=== PATIENT | female | born 1990 | race American Indian/Alaskan Native ===

== ENCOUNTER 2021-06-17 10:15 | Emergency (ER) | payer SELFPAY ==
[2021-06-17] MEDS ORDERED: FAMOTIDINE 20 MG TAB PO ONE (11:37)
[2021-06-17] MEDS ORDERED: ONDANSETRON 4 MG ODT TAB PO ONE (11:37)
[2021-06-17] MEDS ORDERED: PANTOPRAZOLE 40 MG TAB PO ONE (11:37)
--- NOTE | 2021-06-17 11:51 | Emergency Department Report ---
ED Abdominal Pain HPI - General Chief Complaint: Nausea/Vomiting/Diarrhea Stated Complaint: ABDOMINAL PAIN VOMITING PUI?: No Time Seen by Provider: 06/17/21 11:11 Source: patient Mode of arrival: Ambulatory Limitations: No Limitations - History of Present Illness Initial Comments: 30-year-old female presents to the ER today with complaints of epigastric pain. Patient states that the pain woke up this morning around 3 AM. She describes as a burning pain that has been constant but waxes and wanes. She states that she had 2 episodes of vomiting with the pain. She denies any coffee-ground emesis or hematemesis. She also had 3 episodes of loose stools with no melena, hematochezia or mucus in the stool. She states that she had similar symptoms 2 years ago and at that time it was related to her gallbladder which she is c urrently status post cholecystectomy. She states that she was fine for 6 months after she had her gallbladder removed and since then she has been having intermittent pain in her epigastric area. She has never seen a GI specialist for endoscopy. She denies alcohol abuse or NSAID abuse. Her last menstrual cycle stopped yesterday. She is status post tubal ligation. MD Complaint: abdominal pain -: Sudden, This morning - Related Data Previous Rx's Medication Instructions Recorded Last Taken Type Famotidine [Pepcid] 20 mg PO BID #20 tablet 06/17/21 Unknown Rx Ondansetron [Zofran Odt] 4 mg PO Q8HR PRN #12 tab.rapdis 06/17/21 Unknown Rx Pantoprazole [Protonix] 40 mg PO QDAY #30 tablet 06/17/21 Unknown Rx Allergies Allergy/AdvReac Type Severity Reaction Status Date / Time No Known Allergies Allergy Verified 06/17/21 10:26 ED Review of Systems ROS: Stated complaint: ABDOMINAL PAIN VOMITING Other details as noted in HPI Comment: All other systems reviewed and negative Constitutional: denies: chills, fever Eyes: denies: eye pain, eye discharge, vision change ENT: denies: ear pain, throat pain, dental pain, hearing loss, epistaxis, congestion Respiratory: denies: cough, shortness of breath, SOB with exertion, SOB at rest, wheezing Cardiovascular: denies: chest pain, palpitations, edema, syncope, paroxysmal nocturnal dyspnea Endocrine: no symptoms reported Gastrointestinal: abdominal pain, nausea, vomiting. denies: diarrhea, constipation, hematemesis, melena, hematochezia Genitourinary: denies: urgency, dysuria, frequency, hematuria, discharge, abnormal menses, dyspareunia Skin: denies: rash, lesions, change in color, change in hair/nails, pruritus Neurological: denies: headache, weakness, paresthesias, abnormal gait, vertigo Psychiatric: denies: anxiety, depression, auditory hallucinations, visual hallucinations, homicidal thoughts, suicidal thoughts Hematological/Lymphatic: denies: easy bleeding, easy bruising, swollen glands ED Past Medical Hx - Past Medical History Previous Medical History?: Yes Additional medical history: gastritis - Surgical History Past Surgical History?: Yes Hx Cholecystectomy: Yes - Medications Home Medications: Home Medications Medication Instructions Recorded Confirmed Last Taken Type Famotidine [Pepcid] 20 mg PO BID #20 tablet 06/17/21 Unknown Rx Ondansetron [Zofran Odt] 4 mg PO Q8HR PRN #12 tab.rapdis 06/17/21 Unknown Rx Pantoprazole [Protonix] 40 mg PO QDAY #30 tablet 06/17/21 Unknown Rx ED Physical Exam - General Limitations: No Limitations General appearance: alert, in no apparent distress - Head Head exam: Present: atraumatic, normocephalic - Eye Eye exam: Present: normal appearance, PERRL, EOMI Pupils: Present: normal accommodation - ENT ENT exam: Present: normal exam, mucous membranes moist, TM's normal bilaterally - Neck Neck exam: Present: normal inspection, full ROM - Respiratory Respiratory exam: Present: normal lung sounds bilaterally. Absent: respiratory distress, wheezes, rales - Cardiovascular Cardiovascular Exam: Present: regular rate, normal rhythm, normal heart sounds - GI/Abdominal GI/Abdominal exam: Present: soft, tenderness (Mild epigastric ttp without guarding or rebound ). Absent: distended - Neurological Exam Neurological exam: Present: alert, oriented X3, CN II-XII intact, normal gait - Psychiatric Psychiatric exam: Present: normal affect, normal mood - Skin Skin exam: Present: intact ED Course Vital Signs 06/17/21 06/17/21 06/17/21 10:25 10:26 13:57 Temperature 98.4 F Pulse Rate 58 L 55 L Respiratory 16 Rate Blood Pressure 120/62 Blood Pressure 114/62 [Left] O2 Sat by Pulse 100 99 Oximetry ED Medical Decision Making - Lab Data Result diagrams: 06/17/21 11:42 06/17/21 11:42 - Radiology Data Radiology results: report reviewed Patient: AKIRA SILVA MR#: [id number] : 1990 Acct:[id number] Age/Sex: 30 / F ADM Date: 06/17/21 Loc: ED Attending Dr: Ordering Physician: KYLIE BALES Date of Service: 06/17/21 Procedure(s): CT abdomen pelvis w con Accession Number(s): [id number] cc: KYLIE BALES CT ABDOMEN AND PELVIS WITH CONTRAST HISTORY: Epigastric pain COMPARISON: None TECHNIQUE: Routine abdominal and pelvic CT exam performed following intravenous contrast administration.. All CT scans at this location are performed using CT dose reduction for ALARA by means of automated exposure control. FINDINGS: CT ABDOMEN: Lung Bases: No significant abnormality. Liver: No significant abnormality. Biliary: Gallbladder is surgically absent. Spleen: No significant abnormality. Unenlarged. Pancreas: No significant abnormality. Adrenals: No significant abnormality. Kidneys: No significant abnormality. Lymphatics: No lymphadenopathy. Vasculature: No significant abnormality. Bowel/Peritoneum: No significant abnormality. No free air. No free fluid. Normal appendix. CT PELVIC: : No significant abnormality. Lymphatics: No lymphadenopathy. Osseous Structures: No aggressive appearing osseous lesions. Additional Findings: None IMPRESSION: 1. No acute findings or findings to explain the patient's symptoms. Signer Name: Sheldon Grbubs MD Signed: 06/17/2021 3:58 PM Workstation Name: [id number] Transcribed By: MONISHA Dictated By: Sheldon Grubbs MD Electronically Authenticated By: Sheldon Grubbs MD Signed Date/Time: 06/17/21 1558 DD/ 56 TD/TT: - Medical Decision Making Labs reviewed, --CBC and CMP unremarkable. Lipase 157, but CT abdomen pelvis shows no signs of pancreatitis or any other acute abnormalities. Patient states that she does not drink. She is status post cholecystectomy x2 years ago. She denies any past history of pancreatitis. Exact cause of her elevated lipase at this time unclear. She currently resting comfortably. She reports feeling much better after, Zofran, Pepcid and Protonix. Repeat abdominal exam shows a soft nontender abdomen. She is not toxic or ill-appearing. Her vital signs are stable. Di scussed labs and imaging results with patient. Symptoms at this time could be related to gastritis or peptic ulcer disease. She will be started on Pepcid and Protonix given a prescription for Zofran as well to take as needed for nausea but I did recommend that she follows up with a GI specialist to get an upper GI and also discussed with her diet changes that will avoid her from getting a flareup if it is related to gastritis or peptic ulcer disease. Patient expressed understanding of instructions and agree with plan. Patient stable at time of discharge. Critical care attestation.: If time is entered above; I have spent that time in minutes in the direct care of this critically ill patient, excluding procedure time. ED Disposition Clinical Impression: Epigastric abdominal pain Disposition: TO HOME OR SELFCARE Is pt being admited?: No Does the pt Need Aspirin: No Condition: Stable Instructions: Gastritis, Adult, [id number], Peptic Ulcer, [id number], Peptic Ulcer Eating Plan Additional Instructions: I recommend that you take the Pepcid and the Protonix. Take the Zofran as needed to help with nausea and vomiting. I recommend that you follow-up with the GI specialist for endoscopy especially if your symptoms continue, in the meantime I recommend that you stay away from spicy foods, acidic foods, caffeine, ibuprofen, naproxen or any other NSAID alcohol as this can cause flareup of his symptoms. Return to the ER if your symptoms changes or worsens in any way. Prescriptions: Famotidine [Pepcid] 20 mg PO BID #20 tablet Pantoprazole [Protonix] 40 mg PO QDAY #30 tablet Ondansetron [Zofran Odt] 4 mg PO Q8HR PRN #12 tab.rapdis PRN Reason: nausea/vomiting Referrals: [facility] [Provider Group] - 3-5 Days Forms: Work/School Release Form(ED) Time of Disposition: 16:12
[2021-06-17 12:34] LABS: Basophils % (Auto) 0.4 % (0.0-1.8); Eosinophils % (Auto) 0.1 % (0.0-4.3); Hematocrit 36.5 % (30.3-42.9); Hemoglobin 12.2 gm/dl (10.1-14.3); Lymphocytes # (Auto) 1.5 K/mm3 (1.2-5.4); Lymphocytes % (Auto) 22.1 % (13.4-35.0); Mean Corpuscular HGB Conc 34 % (30-34); Mean Corpuscular Volume 91 fl (79-97); Monocytes # (Auto) 0.2 K/mm3 (0.0-0.8); Monocytes % (Auto) 2.7 % (0.0-7.3); Platelet Count 244 K/mm3 (140-440); Red Blood Count 4.03 M/mm3 (3.65-5.03); Red Cell Distribution Width 12.2 % (13.2-15.2)
[2021-06-17 13:58] VITALS: BP 114/62
[2021-06-17 15:04] LABS: BUN/Creatinine Ratio 18; Blood Urea Nitrogen 9 mg/dL (7-17); Calcium 9.4 mg/dL (8.4-10.2)
[2021-06-17 15:05] LABS: Alanine Aminotransferase 44 units/L (7-56); Albumin 4.2 g/dL (3.9-5); Hemolysis Index 5
--- NOTE | 2021-06-17 16:02 | Cat Scan Report ---
CT ABDOMEN AND PELVIS WITH CONTRAST HISTORY: Epigastric pain COMPARISON: None TECHNIQUE: Routine abdominal and pelvic CT exam performed following intravenous contrast administrat ion.. All CT scans at this location are performed using CT dose reduction for ALARA by means of autom ated exposure control. FINDINGS: CT ABDOMEN: Lung Bases: No significant abnormality. Liver: No significant abnormality. Biliary: Gallbladder is surgically absent. Spleen: No significant abnormality. Unenlarged. Pancreas: No significant abnormality. Adrenals: No significant abnormality. Kidneys: No significant abnormality. Lymphatics: No lymphadenopathy. Vasculature: No significant abnormality. Bowel/Peritoneum: No significant abnormality. No free air. No free fluid. Normal appendix. CT PELVIC: : No significant abnormality. Lymphatics: No lymphadenopathy. Osseous Structures: No aggressive appearing osseous lesions. Additional Findings: None IMPRESSION: 1. No acute findings or findings to explain the patient's symptoms. Signer Name: Sheldon Grubbs MD Signed: 06/17/2021 3:58 PM Workstation Name: [id number]
== END 2021-06-17 16:29 | disposition home or self-care (01) ==
LOC: ED 10:15
DX: R10.13 Epigastric pain (principal); R11.10 Vomiting, unspecified; Z90.49 Acquired absence of other specified parts of digestive tract; Z98.890 Other specified postprocedural states
CPT/HCPCS: 36415; 74177; 80053; 83690; 84703; 85025; 99284; Q9967; Q0162

== ENCOUNTER 2021-08-02 05:26 | Emergency (ER) | payer SELFPAY ==
[2021-08-02 06:29] VITALS: BP 108/64
[2021-08-02 06:40] LABS: Bilirubin,Urine NEG (Negative); Blood,Urine NEG (Negative); Color,Urine Amber (Yellow); Mucus,Urine 3+ /HPF
[2021-08-02 06:48] LABS: Basophils # (Auto) 0.1 K/mm3 (0.0-0.1); Basophils % (Auto) 0.9 % (0.0-1.8); Eosinophils # (Auto) 0.1 K/mm3 (0.0-0.4); Eosinophils % (Auto) 1.4 % (0.0-4.3); Hematocrit 37.2 % (30.3-42.9); Hemoglobin 12.9 gm/dl (10.1-14.3); Lymphocytes # (Auto) 2.4 K/mm3 (1.2-5.4); Lymphocytes % (Auto) 38.6 % (13.4-35.0); Mean Corpuscular HGB Conc 35 % (30-34); Mean Corpuscular Volume 90 fl (79-97); Monocytes # (Auto) 0.3 K/mm3 (0.0-0.8); Monocytes % (Auto) 5.5 % (0.0-7.3); Platelet Count 206 K/mm3 (140-440); Red Blood Count 4.12 M/mm3 (3.65-5.03); Red Cell Distribution Width 12.5 % (13.2-15.2)
[2021-08-02 06:59] LABS: Alanine Aminotransferase 6 units/L (7-56); Albumin 4.2 g/dL (3.9-5); Blood Urea Nitrogen 11 mg/dL (7-17); Hemolysis Index 6
[2021-08-02 07:05] LABS: BUN/Creatinine Ratio 18
--- NOTE | 2021-08-02 08:21 | Emergency Department Report ---
ED Female HPI - General Chief complaint: Abdominal Pain Stated complaint: NAUSEA,VOMITTING, ABD PAIN Time Seen by Provider: 08/02/21 08:00 Source: patient Mode of arrival: Ambulatory Limitations: No Limitations - History of Present Illness Initial comments: The patient was evaluated in the emergency department for symptoms described in the history of present illness. He/she was evaluated in the context of the global COVID-19 pandemic, which necessitated consideration that the patient might be at risk for infection with the virus that causes COVID-19. Institutional protocols and algorithms that pertain to the evaluation of patients at risk for COVID-19 are in a state of rapid change based on information released by regulatory bodies including the CDC and federal and state organizations. These policies and algorithms were followed during the patient's care in the emergency department. Please note that these policies, procedures and recommendations changed on a rapid basis. 30-year-old -Wel[place] female presents to the emergency room stating she is having some pelvic pain that started yesterday. Patient states that she had vomited once yesterday and then 1 time again at about 230 was her last time. Patient denies any fever no chills. She denies any diarrhea. Patient denies any vaginal discharge no vaginal bleeding no concern for STD. She is complains of intermittent headache that responds to pain medicine. Patient states nothing makes it worse nothing makes it better. She states that the pain is intermittent. Last BM was last night and normal. Patient is not vaccinated. Patient reports her last menstrual period was 07/13/2021. She is 3 para 2. MD Complaint: pelvic pain Location: suprapubic Severity: mild Severity scale (0 -10): 4 Quality: dull Consistency: intermittent Improves with: none Worsens with: none Are you Now?: No Last Menstrual Period: 07/13/21 EDC: 04/19/22 Associated Symptoms: nausea/vomiting - Related Data Sexually active: Yes : 3 Para: 2 Previous Rx's Medication Instructions Recorded Last Taken Type Famotidine [Pepcid] 20 mg PO BID #20 tablet 06/17/21 Unknown Rx Ondansetron [Zofran Odt] 4 mg PO Q8HR PRN #12 tab.rapdis 06/17/21 Unknown Rx Pantoprazole [Protonix] 40 mg PO QDAY #30 tablet 06/17/21 Unknown Rx Naproxen [Naprosyn] 500 mg PO BID PRN #20 tablet 08/02/21 Unknown Rx Allergies Allergy/AdvReac Type Severity Reaction Status Date / Time No Known Allergies Allergy Verified 06/17/21 10:26 ED Review of Systems ROS: Stated complaint: NAUSEA,VOMITTING, ABD PAIN Other details as noted in HPI Comment: All other systems reviewed and negative ED Past Medical Hx - Past Medical History Previous Medical History?: No Additional medical history: gastritis - Surgical History Hx Cholecystectomy: Yes Additional Surgical History: TL - Social History Smoking Status: Never Smoker Substance Use Type: None - Medications Home Medications: Home Medications Medication Instructions Recorded Confirmed Last Taken Type Famotidine [Pepcid] 20 mg PO BID #20 tablet 06/17/21 Unknown Rx Ondansetron [Zofran Odt] 4 mg PO Q8HR PRN #12 tab.rapdis 06/17/21 Unknown Rx Pantoprazole [Protonix] 40 mg PO QDAY #30 tablet 06/17/21 Unknown Rx Naproxen [Naprosyn] 500 mg PO BID PRN #20 tablet 08/02/21 Unknown Rx ED Physical Exam - General Limitations: No Limitations General appearance: alert, in no apparent distress - Head Head exam: Present: atraumatic, normocephalic - Eye Eye exam: Present: normal appearance - ENT ENT exam: Present: normal external ear exam - Neck Neck exam: Present: normal inspection, full ROM - Respiratory Respiratory exam: Absent: accessory muscle use - Cardiovascular Cardiovascular Exam: Present: regular rate - GI/Abdominal GI/Abdominal exam: Present: soft, tenderness (Suprapubic). Absent: distended - Extremities Exam Extremities exam: Present: normal inspection, full ROM - Back Exam Back exam: Present: normal inspection - Neurological Exam Neurological exam: Present: alert, oriented X3, normal gait - Psychiatric Psychiatric exam: Present: normal affect, normal mood - Skin Skin exam: Present: warm, dry, intact, normal color. Absent: rash ED Course Vital Signs 08/02/21 05:42 Temperature 98.3 F Pulse Rate 57 L Respiratory 18 Rate Blood Pressure 108/64 O2 Sat by Pulse 99 Oximetry ED Medical Decision Making - Lab Data Result diagrams: 08/02/21 05:59 08/02/21 05:59 - Radiology Data Radiology results: report reviewed [facility] [address] [place] [address] Ultrasound Report Signed Patient: AKIRA SILVA MR#: [id number] : 1990 Acct:[id number] Age/Sex: 30 / F ADM Date: 08/02/21 Loc: ED Attending Dr: Ordering Physician: NATALY AMARAL Date of Service: 08/02/21 Procedure(s): US pelvic complete Accession Number(s): [id number] cc: NATALY AMARAL ULTRASOUND PELVIS INDICATION / CLINICAL INFORMATION: pelvic pain. TECHNIQUE: Transabdominal. Duplex Color Doppler used: Yes. COMPARISON: None available FINDINGS: UTERUS: Normal measuring 10.1 x 4.4 x 5.6 cm. RIGHT ADNEXA: No significant ovarian cyst or mass. Normal color Doppler blood flow. Normal measuring 3.8 x 2.9 x 3.0 cm. Normal follicles are present. LEFT ADNEXA: No significant ovarian cyst or mass. Normal color Doppler blood flow. Normal measuring 3.6 x 2.8 x 2.3 cm with normal follicles. URINARY BLADDER: No significant abnormality. FREE FLUID: None. ADDITIONAL FINDINGS: None. IMPRESSION: 1. No significant abnormality. Signer Name: Chi Goncalves MD Signed: 08/02/2021 9:20 AM Workstation Name: [id number] Transcribed By: DB Dictated By: CHI GONCALVES MD Electronically Authenticated By: CHI GONCALVES MD Signed Date/Time: 08/02/21919 DD/ 8 TD/TT: Print - Medical Decision Making 30-year-old -Wel[place] female presents to the emergency room stating she is having some pelvic pain that started yesterday. Patient states that she had vomited once yesterday and then 1 time again at about 230 was her last time. Patient denies any fever no chills. She denies any diarrhea. Patient denies any vaginal discharge no vaginal bleeding no concern for STD. She is complains of intermittent headache that responds to pain medicine. Patient states nothing makes it worse nothing makes it better. She states that the pain is intermittent. Last BM was last night and normal. Patient is not vaccinated. Patient reports her last menstrual period was 07/13/2021. She is 3 para 2. Labs are all stable. We will do an pelvic ultrasound. Ultrasound shows no abnormalities. Patient can take ibuprofen or Tylenol for pain management and follow-up with a [facility] TE[facility]. Critical care attestation.: If time is entered above; I have spent that time in minutes in the direct care of this critically ill patient, excluding procedure time. ED Disposition Clinical Impression: Pelvic pain Disposition: 01 HOME / SELF CARE / HOMELESS Is pt being admited?: No Does the pt Need Aspirin: No Condition: Stable Instructions: Abdominal Pain (ED), Pelvic Pain, Female, [id number] Additional Instructions: Urinalysis is negative for any infection. Ultrasound of pelvic shows no abnormalities. I recommended she take naproxen for pain. And follow-up with an [facility] TE[facility]. Prescriptions: Naproxen [Naprosyn] 500 mg PO BID PRN #20 tablet PRN Reason: Pain , Severe (7-10) Referrals: [facility] [Primary Care Provider] - 3-5 Days [facility] [Provider Group] - 3-5 Days [facility] [Provider Group] - 3-5 Days Forms: Work/School Release Form(ED) Time of Disposition: 09:37
--- NOTE | 2021-08-02 09:25 | Ultrasound Report ---
ULTRASOUND PELVIS INDICATION / CLINICAL INFORMATION: pelvic pain. TECHNIQUE: Transabdominal. Duplex Color Doppler used: Yes. COMPARISON: None available FINDINGS: UTERUS: Normal measuring 10.1 x 4.4 x 5.6 cm. RIGHT ADNEXA: No significant ovarian cyst or mass. Normal color Doppler blood flow. Normal measuring 3.8 x 2.9 x 3.0 cm. Normal follicles are present. LEFT ADNEXA: No significant ovarian cyst or mass. Normal color Doppler blood flow. Normal measuring 3 .6 x 2.8 x 2.3 cm with normal follicles. URINARY BLADDER: No significant abnormality. FREE FLUID: None. ADDITIONAL FINDINGS: None. IMPRESSION: 1. No significant abnormality. Signer Name: Osman Goncalves MD Signed: 08/02/2021 9:20 AM Workstation Name: [id number]
== END 2021-08-02 09:59 | disposition home or self-care (01) ==
LOC: ED 05:26
DX: R10.2 Pelvic and perineal pain (principal); Z79.899 Other long term (current) drug therapy; Z98.890 Other specified postprocedural states
CPT/HCPCS: 36415; 76856; 80053; 81001; 83735; 84703; 85025